=== PATIENT | female | born 1960 | race Caucasian/White ===

== ENCOUNTER 2024-10-31 14:01 | Emergency (ER) | payer OTHER, SELFPAY ==
--- NOTE | ~2024-10-31 | XR_ITS ---
EXAMINATION: XR WRIST, LEFT CLINICAL INFORMATION: fall COMPARISON: None available. TECHNIQUE: PA, lateral, oblique, and scaphoid views of the left wrist. FINDINGS: Mildly impacted distal radial metaphyseal fracture with mild dorsal and lateral buckling of the cortex. No angulation, displacement, intra-articular involvement, or override. Tiny ulnar styloid avulsion fracture. No additional fractures. No dislocation. Carpal bones intact and normally aligned. There is soft tissue swelling about the wrist. XR/XR wrist LT 2V IMPRESSION: 1. Transversely oriented distal radial metaphyseal fracture with mild buckling of the cortex. No displacement or angulation. No intra-articular involvement. 2. Ulnar styloid avulsion fracture. 3. Soft tissue swelling. Electronically signed by: Moe Presley MD 10/31/2024 04:12 PM [facility]
[2024-10-31 15:45] VITALS: BP 197/83; PULSE 88; RESP 18; TEMP 36.8; O2SAT 98; BMI 19.2
--- NOTE | 2024-10-31 15:49 | ED.FALL ---
HPI - Fall General Chief Complaint: Fall Stated Complaint: Fall L arm pain Time Seen by Provider: 10/31/24 17:12 Source: patient Mode of arrival: ambulatory Limitations: no limitations History of Present Illness ED Provider: Maryellen Garcia APRN HPI Narrative: 64-year-old female right-hand dominant presents the ER with complaints of left wrist pain after a FOOSH which occurred today at 13:00. No head strike or loss of consciousness. No associated weakness, numbness, tingling of the extremity. Related Data Allergies Allergy/AdvReac Type Severity Reaction Status Date / Time No Known Allergies Allergy Verified 10/31/24 15:46 Review of Systems Review of Systems: Yes all other systems are reviewed and are negative Constitutional: Constitutional: Reports no additional constitutional complaints, Denies body ache(s), Denies chills, Denies fever(s), Denies headache(s) and Denies weakness Eyes: Eyes: Reports no additional eye complaints and Denies change in vision ENT: Reports system reviewed and no additional complaints, except as documented, Denies dizziness, Denies headache(s), Denies nasal congestion, Denies nasal discharge and Denies neck pain Cardiovascular: Cardiovascular: Reports no additional cardiovascular complaints, Denies chest pain, Denies leg edema and Denies dyspnea Respiratory: Respiratory: Reports no additional respiratory complaints, Denies cough and Denies dyspnea Gastrointestinal: Gastrointestinal: Reports no additional gastrointestinal complaints, Denies abdominal pain, Denies diarrhea, Denies nausea and Denies vomiting Genitourinary: Genitourinary: Reports no additional female genitourinary complaints and Denies urinary incontinence Musculoskeletal: Musculoskeletal: Reports no additional musculoskeletal complaints, Denies back pain, Reports arthralgias, Reports joint swelling, Denies neck pain, Denies numbness and Denies tingling Integumentary/Breasts: Skin/Breast: Reports system reviewed and no additional complaints, except as docu and Denies rash Neurologic: Reports system reviewed and no additional complaints, except as documented, Denies dizziness, Denies headache(s), Denies numbness, Denies tingling and Denies weakness PMFSH Past Medical History Attestation statement: The following information was validated with the patient. Source: old records reviewed and nursing notes reviewed Physical Exam Vital Signs: Vital Signs: Last Vital Signs Temp 98.3 F 10/31/24 15:45 Pulse 88 10/31/24 15:45 Resp 18 10/31/24 15:45 BP 197/83 H 10/31/24 15:45 Pulse Ox 98 10/31/24 15:45 O2 Del Method Room Air 10/31/24 15:45 BMI result Body Mass Index 19.2 Extrem: Other: There is swelling noted over the dorsal distal wrist and ecchymosis noted over the volar aspect. There is pain on palpation. 2+ radial and ulnar pulses. Distal CMS intact. No pain on palpation over proximal joints Course Course Course Narrative: This is a rapid medical exam. Defer additional HPI, ROS, PE to primary provider. 64-year-old female here with complaints of left wrist pain after slip and fall when p.m. on the ice. Will check x-rays. Vitals stable. Ilya Garcia GRAPPLER Procedures Orthopedic Splinting/Casting Injury #1: Side: left Upper Extremity Injury Location: wrist Upper Extremity Immobilizer: volar splint Medical Decision Making Medical Decision Making MDM Narrative: 64-year-old female right-hand dominant presents the ER with complaints of left wrist pain after a FOOSH which occurred today at 13:00. No head strike or loss of consciousness. No associated weakness, numbness, tingling of the extremity. On exam there is pain and swelling along the dorsal aspect of the distal radius. Normal CMS. Will obtain x-rays Differential Diagnosis Differential Diagnoses: The differential diagnosis associated with the presentation includes Fracture, strain, sprain Low suspicion for complex fracture, dislocation or vascular injury Admission/Observation Consideration of admission/observation: Escalation of care including admission/observation considered Low suspicion for complex fracture, dislocation or vascular injury requiring advanced imaging, urgent orthopedic consultation Independent Interpretation I performed an independent interpretation of an: Plain X-Ray Interpretation: I independently viewed the x-ray and agree with the radiology report Radiology Impression Discussion of test interpretation with radiology: I have reviewed the radiologist's reading. Radiologist Impression: [address] [address] XRay Report Signed Patient: Karen Nix MR#: [id number] : 1960 Acct:[id number] Age/Sex: 64 / F ADM Date: 10/31/24 Loc: HO.ED Attending Dr: Ordering Physician: Generic ED Physician Date of Service: 10/31/24 Procedure(s): XR wrist LT 2V Accession Number(s): [id number] cc: Generic ED Physician; Physician,Unknown ~ EXAMINATION: XR WRIST, LEFT CLINICAL INFORMATION: fall COMPARISON: None available. TECHNIQUE: PA, lateral, oblique, and scaphoid views of the left wrist. FINDINGS: Mildly impacted distal radial metaphyseal fracture with mild dorsal and lateral buckling of the cortex. No angulation, displacement, intra-articular involvement, or override. Tiny ulnar styloid avulsion fracture. No additional fractures. No dislocation. Carpal bones intact and normally aligned. There is soft tissue swelling about the wrist. XR/XR wrist LT 2V IMPRESSION: 1. Transversely oriented distal radial metaphyseal fracture with mild buckling of the cortex. No displacement or angulation. No intra-articular involvement. 2. Ulnar styloid avulsion fracture. 3. Soft tissue swelling. Electronically signed by: Moe Presley MD 10/31/2024 04:12 PM [facility] Tests considered The following testing was considered but not selected: Low suspicion for complex fracture, dislocation or vascular injury requiring advanced imaging Prescription Management I considered prescription management with: Pain Medication offered narcotic-patient declined Discharge Plan Discharge Clinical Impression: Distal radial fracture Patient Disposition: Home, Self-Care Instructions: Arm Fracture in Adults (ED), Splint Care (ED) Additional Instructions: Elevate the extremity Take Motrin or Tylenol for pain as needed Call orthopedics for follow-up appointment [place] [facility] [place] [facility] [place]Provider Group] - 1 week Print Language: Faroese
--- OUTSIDE RECORDS SUMMARY | 2024-10-31 17:34 | XMS_ITS | Clinical Summary ---
Author Organization [facility] Address [address] [facility], [address] [place] [address] Care Team Providers Care Cake Batter Mixer Name Role Phone Larry Lima MD Primary Care Provider Allergies No known active allergies Medications No known medications Social History Tobacco Use Types Packs/Day Years Used Date Smoking Tobacco: Never Smokeless Tobacco: Never Tobacco Cessation:Counseling Given: Not Answered Comments No Sex and Gender Information Value Date Recorded Sex Assigned at Female 05/31/2024 12:02 PM EDT Legal Sex Female 3:40 PM EST Gender Identity Not on file Sexual Orientation Not on file Last Filed Vital Signs Vital Sign Reading Time Taken Comments Blood Pressure 146/97 05/31/2024 12:23 PM EDT Pulse 95 05/31/2024 12:23 PM EDT Temperature 36.7 ??C (98.1 ??F) 05/31/2024 12:23 PM E DT Respiratory Rate 16 05/31/2024 12:23 PM EDT Oxygen Saturation 98% 05/31/2024 12:23 PM EDT Inhaled Oxygen Concentration - - Weight 49.9 kg (110 lb) 05/31/2024 12:23 PM EDT Height 165.1 cm (5' 5 ) 05/31/2024 12:23 PM EDT Body Mass Index 18.3 05/31/2024 12:23 PM EDT Plan of Treatment Not on file Insurance [facility] [place] [address] Care Teams Cake Batter Mixer Relationship Specialty Start Date End Date Larry Lima MD [address] [place] [id number] PCP - General 05/31/24
--- OUTSIDE RECORDS SUMMARY | 2024-10-31 17:34 | XMS_ITS | Encounter Summary ---
Author Organization [facility] Address [phone] [facility] [address] Care Team Providers Care Production Analyst Name Role Phone Jony Chang MD Primary Care Provider [phone] Encounter Details Date Type Department Care Team (Late st Contact Info) Description 03/29/2023 Ophth Exam [facility] [place] Emergency Department [address] [place] [address] Antonina Jewell MD [address] [place] [id number] [email or web address] Social History Tobacco Use Types Packs/Day Years Used Date Smoking Tobacco: Never Smokeless Tobacco: Never Alcohol Use Standard Drinks/Week Comments Never 0 (1 standard drink = 0.6 oz pur e alcohol) Education Answer Date Recorded Are you interested in more education? Not on diya e 01/25/2023 Are you concerned about learning? Not on file 01/25/2023 No 01/25/2023 No 01/25/2023 Digital Access Answer Date Recorded No 02/26/2023 No 02/26/2023 Reliable internet access at home? Not on file 02/26/2023 Device with a working camera? Not on file Intimate Partner Violence Answer Date R ecorded Are you denied basic needs s uch as food, clothing, or medical care? No 03/29/2023 In the past 12 months have y ou been in a relationship with a person who hurts, threatens, or tries to control you? No 03/29/2023 Are you denied basic needs s uch as food, clothing, or medical care? No 03/29/2023 In the past 12 months have y ou been in a relationship with a person who hurts, threatens, or tries to control you? No 03/29/2023 Sex and Gender Information Value Date Recorded Sex Assigned at Not on file Gender Identity Not on file Sexual Orientation Not on file documented as of this encounter Plan of Treatment Not on file documented as of this encounter Visit Diagnoses Not on filedocumented in this encounter Care Teams Production Analyst Relationship Specialty Start Date End Date Jony Chang MD [email or web address] PCP - General 05/07/21 documented as of this encounter Additional Source Comments The information contained in this document represents components of the legal health record. It is not the complete legal health record.[facility]
--- OUTSIDE RECORDS SUMMARY | 2024-10-31 17:35 | XMS_ITS | Clinical Summary ---
Author Organization [facility] Address [phone] [email or web address] [address] Care Team Providers Care Regional Clinical Director Name Role Phone Jony Chang MD Primary Care Provider [phone] Allergies No known active allergies Medications Medication Sig Dispensed Refills Start Date End Date Status melatonin 3 mg Tab Take 3 mg by mouth. Active bacitracin-polymyxin B (POLYSPORIN) ophthalmic ointment Place 0.5 inches into the right eye 4 (four) times a day. Dispense 2 tubes (7g) 7 g 4 05/07/2021 Active Additional Information Patient not taking.Reported on 03/29/2023 Active Problems No known active problems Family History Medical History Relation Comments Glaucoma Father glaucoma Uncoded Family History Father lazy eye Uncoded Family History Sister autoimmun e disease Relation Status Comments Father Sister Social History Tobacco Use Types Packs/Day Years [...] Sign Reading Time Taken Comments Blood Pressure 157/87 03/29/2023 7:26 AM EDT Pulse 70 03/29/2023 7:26 AM EDT Temperature 36.8 ??C (98.2 ??F) 03/29/2023 7:26 AM ED T Respiratory Rate 18 03/29/2023 7:26 AM EDT Oxygen Saturation 100% 03/29/2023 7:26 AM EDT Inhaled Oxygen Concentration - - Weight 49.9 kg (110 lb) 05/07/2021 9:19 PM EDT Height 165.1 cm (5' 5 ) 05/07/2021 9:19 PM EDT Body Mass Index 18.3 05/07/2021 9:19 PM EDT Plan of Treatment Health Maintenance Due Date Last Done Comments Adult Td,Tdap Booster 1960 LIPID PANEL 1960 DEPRESSION SCREENING 1972 HEPATITIS B SCREENING 1978 HEPATITIS C SCREENING 1978 HIV ONE-TIME SCREENING (18-6 5 YEARS) 1978 PAP SMEAR 1981 COLOGUARD 2005 COLONOSCOPY 2005 COLORECTAL CANCER SCREENING 2005 FIT TEST 2005 FOBT 2005 SIGMOIDOSCOPY 2005 VIRTUAL COLONOSCOPY 2005 PNEUMOCOCCAL VACCINES (50+ years) (1 of 1 - PCV) 2010 ZOSTER VACCINES (1 of 2) 2010 MAMMOGRAM 10/13/2015 10/13/2013, 07/12/2012, 07/05/2011 INFLUENZA VACCINE (#1) 2024 COVID-19 VACCINE ( - 2023-2 5 season) 2024 RSV VACCINE (1 - 1-dose 75+ series) 2035 SMOKING STATUS SCREENING (On ce After 26 Yrs) Completed 03/29/2023 HEPATITIS A VACCINES Aged Out No long er eligible based on patient's age to complete this topic HEPATITIS B VACCINES Aged Out No long er eligible based on patient's age to complete this topic HIB VACCINES Aged Out No longer eligi ble based on patient's age to complete this topic MENINGOCOCCAL VACCINES (ACWY) Aged Out No longer eligible based on patient's age to complete this topic Medical Devices Not on file Procedures Procedure Name Priority Date/Time Associated Diagnosis Comments BI MAMMOGRAM SCREENING (BILATERAL) Routine 10/13/2013 1:30 PM EST from Last 3 Months or Most Recently Relevant to Health Maintenance Results * Mammogram Screening (Bilateral) (10/13/2013 1:30 PM EST) Anatomical Region Laterality Modality Breast Left, Breast Right, Breast Bilateral Bila teral Mammography 10/13/2013 1:30 PM EST Narrative 10/13/2013 1:30 PM EST Exam Number: ??[id number] ?Report Status: ??Signed Type: ??DIG SCREENING MAMM AZAM W/CAD Date/Time: ??10/13/2013 13:30 Ordering Provider: ??MANSOOR KARIMI DR, MD ?EXAMS: [id number] MAMM/DIG SCREENING MAMM AZAM W/C BI-RAD 1 ??Neg ? REASON FOR TEST: ANNUAL ? TEST DETAIL: ? - ? PCPT: [id number] ? BILATERAL DIGITAL ??MAMMOGRAM: ? HISTORY: The patient presents for annual mammography. Right ? breast benign core biopsy in November 2009. ? Examination is performed with digital mammography and computer ? aided detection as well as tomosynthesis. ? Comparison is made with the previous examinations dating back to ?07/05/2011. ? FINDINGS: The breast tissue is heterogeneously dense, an ? appearance which lowers the sensitivity of mammography. ??There ? are no suspicious masses, suspicious calcifications, areas of ? distortion or other signs of malignancy. The localizing clip is ? unchanged in position at the site of benign biopsy in the right ? outer breast. ? The findings and recommendations were discussed with the patient ? at the time of the exam. ? IMPRESSION: ??No mammographic findings suspicious for malignancy. ? No significant change from prior examinations. ? Routine annual mammography is recommended. ? Result Code: ??S1 BI-RADS 1 Negative. ? Follow Up: ??12 Months ? 3:07 PM ?Reported By: DIVYA-RYLAN SELLAND, M.D. ?S1 ? CC: MANSOOR KARIMI M.D. ? Technologist: ANA SHEA ? Transcribed Date/Time: 10/13/2013 (1507) ? Landing Scaler: LADONNA ? Dictated Date/Time: 10/13/2013 (1502) Procedure Note Sys, Conversion Provider Not In - 11/28/2014 Exam Number: [id number] Report Status: Signed Type: DIG SCREENING MAMM ZAAM W/CAD Date/Time: 10/13/2013 13:30 Ordering Provider: MANSOOR KARIMI DR, MD EXAMS: [id number] MAMM/DIG SCREENING MAMM AZAM W/C BI-RAD 1 Neg REASON FOR TEST: ANNUAL TEST DETAIL: - PCPT: [id number] BILATERAL DIGITAL MAMMOGRAM: HISTORY: The patient presents for annual mammography. Right breast benign core biopsy in November 2009. Examination is performed with digital mammography and computer aided detection as well as tomosynthesis. Comparison is made with the previous examinations dating back to 07/05/2011. FINDINGS: The breast tissue is heterogeneously dense, an appearance which lowers the sensitivity of mammography. There are no suspicious masses, suspicious calcifications, areas of distortion or other signs of malignancy. The localizing clip is unchanged in position at the site of benign biopsy in the right outer breast. The findings and recommendations were discussed with the patient at the time of the exam. IMPRESSION: No mammographic findings suspicious for malignancy. No significant change from prior examinations. Routine annual mammography is recommended. Result Code: S1 BI-RADS 1 Negative. Follow Up: 12 Months Reported By: HEIDI MCGILL M.D. S1 CC: MANSOOR KARIMI M.D. Technologist: ANA SHEA Transcribed Date/Time: 10/13/2013 (1507) Landing Scaler: LADONNA Dictated Date/Time: 10/13/2013 (8018) Conversion Provider Not In Sys IMG MG EX AMS from Last 3 Months or Most Recently Relevant to Health Maintenance Care Teams Regional Clinical Director Relationship Specialty Start Date End Date Jony Chang MD PCP - General 05/07/21 Additional Source Comments The information contained in this document represents components of the legal health record. It is not the complete legal health record.[facility]
--- OUTSIDE RECORDS SUMMARY | 2024-10-31 17:35 | XMS_ITS | Clinical Summary ---
Author Organization [facility] Address [address] [place] [address] Care Team Providers Care Revenue Manager Name Role Phone Unavailable Primary Care Provider Unavailabl e Social History Tobacco Use Types Packs/Day Years Used Date Smoking Tobacco: Never Assessed Comments Unknown Sex and Gender Information Value Date Recorded Sex Assigned at Not on file Legal Sex Female 10:35 PM EDT Gender Identity Not on file Sexual Orientation Not on file Plan of Treatment Not on file
--- OUTSIDE RECORDS SUMMARY | 2024-10-31 17:35 | XMS_ITS | Encounter Summary ---
Author Organization [facility] Address [phone] [place] [address] Care Team Providers Care Report Manager Name Role Phone Jony Chang MD Primary Care Provider [phone] Encounter Details Date Type Department Care Team (Late st Contact Info) Description 05/07/2021 Ophth Exam [facility] Emergency Department [address] [place] [address] Padilla Collado MD [address] [place] [address] [email or web address] Social History Tobacco Use Types Packs/Day Years Used Date Smoking Tobacco: Never Smokeless Tobacco: Never Alcohol Use Standard Drinks/Week Comments Never 0 (1 standard drink = 0.6 oz pur e alcohol) Sex and Gender Information Value Date Recorded Sex Assigned at Not on file Gender Identity Not on file Sexual Orientation Not on file documented as of this encounter Plan of Treatment Not on file documented as of this encounter Visit Diagnoses Not on filedocumented in this encounter Care Teams Report Manager Relationship Specialty Start Date End Date Jony Chang MD PCP - General 05/07/21 documented as of this encounter Additional Source Comments The information contained in this document represents components of the legal health record. It is not the complete legal health record.[facility]
[2024-10-31 17:41] VITALS: BP 197/83; PULSE 88; RESP 18; TEMP 36.8; O2SAT 98
== END 2024-10-31 17:41 | disposition home or self-care (01) ==
PROVIDERS: Emergency Provider Emergency Medicine
DX: S52.502A Unspecified fracture of the lower end of left radius, initial encounter for closed fracture (principal); X58.XXXA Exposure to other specified factors, initial encounter; Y93.9 Activity, unspecified; Y92.9 Unspecified place or not applicable; Y99.8 Other external cause status
CPT/HCPCS: 29125; 73100; 99282; 99284

== ENCOUNTER → 2024-10-31 15:50 | Outpatient (BNV) | payer OTHER, SELFPAY | PROVIDERS: Visit Provider Radiology Diagnostic Radiology | DX: S59.202A Unspecified physeal fracture of lower end of radius, left arm, initial encounter for closed fracture (principal); S52.612A Displaced fracture of left ulna styloid process, initial encounter for closed fracture | CPT/HCPCS: 73100 ==